=== PATIENT | male | born 1960 | race Caucasian/White ===

== ENCOUNTER 2018-02-12 15:24 | Day surgery (SDC) | payer BC ==
[~2018-02-12] VITALS: Ht 182.9 cm; Wt 100.0 kg
[2018-02-12] MEDS ORDERED: PROPOFOL 200 MG/20 ML AMP IV ONE (15:25)
[2018-02-12] MEDS ORDERED: LIDOCAINE HCL 1% PF 5 ML SYRINGE OTHER ONE (15:25)
[2018-02-12] MEDS ORDERED: ONDANSETRON HCL 4 MG/2 ML VIAL IV PUSH ONE (15:25)
[2018-02-12] MEDS ORDERED: LOSA25TA PO (15:56)
[2018-02-12] MEDS ORDERED: METF500T PO (15:56)
[2018-02-12 16:06] LABS: AUTOMATED NEUTROPHIL # 3.4 TH/MM3 (1.8-7.7); BASOPHIL % 0.6 % (0.0-2.0); EOSINOPHIL # 0.1 TH/MM3 (0-0.4); EOSINOPHIL % 1.6 % (0.0-4.0); HEMATOCRIT 44.2 % (39.0-51.0); LYMPH % 31.4 % (9.0-44.0); LYMPHOCYTE # 1.8 TH/MM3 (1.0-4.8); MEAN CELL VOLUME 88.2 FL (80.0-100.0); MEAN CORPUSCULAR HGB CONC 34.1 % (32.0-36.0); MEAN PLATELET VOLUME 6.9 FL (7.0-11.0); MONO % 8.9 % (0.0-8.0); MONOCYTE # 0.5 TH/MM3 (0-0.9); NEUT % 57.5 % (16.0-70.0); PLATELET COUNT 211 TH/MM3 (150-450); RED BLOOD COUNT 5.01 MIL/MM3 (4.50-5.90); RED CELL DISTRIBUTION WIDTH 13.1 % (11.6-17.2); WHITE BLOOD COUNT 5.8 TH/MM3 (4.0-11.0)
[2018-02-12] MEDS ORDERED: DEXAMETHASONE SOD PHOS 4 MG/ML VIAL ONE (16:09)
[2018-02-12] MEDS ORDERED: EPINEPHrine HCL (1:1000) 1 MG/ML VIAL ONE (16:09)
[2018-02-12] MEDS ORDERED: TOBRAMYCIN/DEXAMETHASONE OPTH OINT 3.5 GM TUBE ONE (16:09)
[2018-02-12] MEDS ORDERED: BALANCED SALT SOLN OPHT IRRIG 15 ML BTL ONE (16:09)
[2018-02-12] MEDS ORDERED: ceFAZolin INJ 1,000 MG VIAL ONE (16:09)
[2018-02-12] MEDS ORDERED: DEXTROSE 50% IN WATER 50 ML SYRINGE ONE (16:10)
[2018-02-12] MEDS ORDERED: STERILE WATER FOR INJECTION 20 ML VIAL ONE (16:13)
[2018-02-12] MEDS ORDERED: MIDAZOLAM HCL 2 MG/2 ML VIAL ONE (19:07)
[2018-02-12] MEDS ORDERED: ATROPINE SULFATE 1% OPHT SOLN 2 ML BTL ONE (20:25)
[2018-02-12] MEDS ORDERED: DO NOT ADM ANY ANTICOAGULANT DRUGS PRN (20:48)
--- NOTE | 2018-02-12 21:20 | MP ---
cc: Deloris Ramires MD, Suzanne M MD DATE OF OPERATION: 02/12/2018 PREOPERATIVE DIAGNOSIS: Vitreous hemorrhage with retinal tear, right eye. POSTOPERATIVE DIAGNOSIS: Vitreous hemorrhage with retinal tear, right eye. PROCEDURE PERFORMED: Pars plana vitrectomy with indirect and endolaser photocoagulation and gas fluid exchange, right eye. SURGEON: Zari Ramires MD ANESTHESIA: General laryngeal mask anesthesia. INDICATIONS: Mr. Lyles is a 57-year-old gentleman who was driving home from [place] yesterday afternoon when he developed a floater in his right eye and then that was followed by painless visual loss. He was seen in the office this morning with vision of hand motion in the right eye and significant vitreous hemorrhage. On examination, there appeared to be a tear at about 12 o'clock in the periphery with a clot overlying it. I could not see the rest of the retina to assess whether anymore tears were present. I explained to the patient and his that there was quite a dense vitreous hemorrhage and that it would probably be best to go ahead and clear it out and treat any underlying pathology. They wished to proceed. The risks and benefits of surgery including the possible acceleration of cataract formation were discussed with the patient. Informed consent was obtained. No guarantee was made as to visual outcome. PROCEDURE IN DETAIL Mr. Lyles was brought to [facility] the operating room #[facility] on the [facility]. Appropriate anesthesia monitoring devices were applied and he was placed under general anesthesia using a laryngeal mask. The right eye was identified as the operative site and prepped and draped in the usual and sterile fashion. A lid speculum was placed. A timeout was then called with the surgical team agreeing to the proposed procedure and surgical site. The microscope was brought around and adjusted. The 23-gauge trocar cannulas were placed 4 mm posterior to the limbus after first displacing the conjunctiva and with a bevelled entrance. The first one was placed at approximately 9 o'clock and verified to be in the posterior chamber. An infusion cannula was affixed to it and it was turned on. Two additional trocar cannulas were placed in similar fashion, 4 mm posterior to the limbus at approximately 10 and 2 o'clock. Using the flat contact lens, the eye was entered with the endoilluminator light pipe and a vitrectomy cutter. A core vitrectomy was carried out and then preretinal hemorrhage was vacuumed off the posterior pole. A flat lens was then switched out for the BIOME wide angle viewing system and the peripheral vitreous was removed. Using both the laser indirect and the endolaser, the photocoagulation was placed 360 degrees, but particularly around the retinal break at approximately 12 o'clock, the flap of which had been amputated purposefully at the time of vitrectomy. No other retinal breaks were identified. Next, the fluid was exchanged out for sterile air and then the air mixed with a 10% mixture of SF6 gas. A 7-0 Vicryl was used to close the superonasal sclerotomy. The other 2, as the cannulas were removed, remained airtight. This left the eye with good pressure and no visible air leaks. Atropine drops were placed on the cornea, followed by subconj injection of Ancef 125 mg in 0.5 mL and Decadron 2 mg in 0.5 mL. The lid speculum was removed and the patient was undraped. Tobradex ointment were placed on the cornea and then the right eye was patched and shielded. The patient had the laryngeal mass removed in the room and was returned to recovery in a head elevated position. It also should be noted that there was a small localized detachment under the tear with subretinal fluid. MD NICOLE Calvo/ , 08:57 PM , 09:19 PM
[2018-02-12] MEDS ORDERED: ACETAMINOPHEN 500 MG CPLT PO PRN (21:30)
[2018-02-12] MEDS ORDERED: oxyCODONE/ACETAMINOPHEN 5 MG/325 MG TAB PO PRN (21:30)
[2018-02-12 22:00] VITALS: BP 165/95; PULSE 71; RESP 14; TEMP 98; O2SAT 97
--- NOTE | 2018-02-13 14:43 | EKG ---
Date Performed: 02/12/2018 Time Performed: 15:55:41 PTAGE: 57 years EKG: Sinus rhythm NORMAL ECG NO PREVIOUS TRACING DOCTOR: Dawit Solorzano Interpretating Date/Time 02/13/2018 14:39:52
== END 2018-02-12 22:20 | disposition home or self-care (01) ==
LOC: HSDC 15:24 → HPAC 15:29 → HSDC 22:20
PROVIDERS: ATTEND Ophthalmology
DX: H33.001 Unspecified retinal detachment with retinal break, right eye (principal); H43.11 Vitreous hemorrhage, right eye; I10 Essential (primary) hypertension; E11.9 Type 2 diabetes mellitus without complications
CPT/HCPCS: 00145; 36415; 67040; 82948; 85025; 93005; J0171; J0690; J1100; J2250; J2405; J3010